=== PATIENT | female | born 1975 | race Hispanic/Latino ===

== ENCOUNTER 2017-10-16 09:31 | Emergency (ER) | payer SELFPAY ==
[2017-10-16 10:36] LABS: RAPID GROUP A STREP NEGATIVE (NEGATIVE)
== END 2017-10-16 10:54 | disposition home or self-care (01) ==
LOC: EDH 09:31
DX: R05 Cough (principal); R50.81 Fever presenting with conditions classified elsewhere; Z72.0 Tobacco use
CPT/HCPCS: 87804; 87880; 96372